=== PATIENT | female | born 1990 | race African-American/Black ===

== ENCOUNTER 2018-01-15 14:55 | Observation (INO) | payer OTHER ==
[~2018-01-15] VITALS: Ht 142.2 cm; Wt 36.8 kg
[2018-01-15 15:17] VITALS: BP 135/75
--- NOTE | 2018-01-15 15:20 | NUR ---
PT WHEEL CHAIR ASSISTED TO BED 12
--- NOTE | 2018-01-15 15:20 | NUR ---
ASSUMED TEMPORARY CARE OF PT AT THIS TIME FOR PRIMARY RN WHO IS ON 30 MIN. BREAK. C/O N/V, CONSTIPATION, SORE THROAT, CHEST PAIN X 2 WKS; PT STATES SHE IS APPROXIMATELY 8 WEEKS OB+. AAOX4 WITH EVEN AND STEADY GAIT; PATIENT STATES PAIN OF /10 AT THIS TIME; VSS; PATIENT POSITIONED FOR COMFORT; HOB ELEVATED; BEDRAILS UP X2; BED DOWN. ER MD MADE AWARE OF PT STATUS. WILL CONTINUE TO MONITOR.
[2018-01-15] MEDS ORDERED: NACL 0.9% 1,000 ML IV ONE ×2 (16:35→18:25)
[2018-01-15] MEDS ORDERED: ONDANSETRON 4 MG ODT PO ONE (16:35)
[2018-01-15 17:00] LABS: BASOPHILS % (AUTO) 0.6 % (0.0-2.0); EOSINOPHILS % (AUTO) 0.6 % (0.0-4.0); HEMATOCRIT 37.4 % (36-48); HEMOGLOBIN 12.6 g/dL (12.0-16.0); LYMPHOCYTES % (AUTO) 14.2 % (20.5-51.1); MEAN CORPUSCULAR HEMOGLOBIN 27 pg (27-31); MEAN CORPUSCULAR HGB CONC 34 g/dL (33-37); MEAN CORPUSCULAR VOLUME 79.1 fL (80-94); MONOCYTES # (AUTO) 0.6 K/uL (0.8-1.0); MONOCYTES % (AUTO) 8.9 % (1.7-9.3); NEUTROPHILS # (AUTO) 5.1 K/uL (1.8-7.7); NEUTROPHILS % (AUTO) 75.7 % (42.2-75.2); PLATELET COUNT (AUTO) 340 K/uL (140-450); RED BLOOD CELL COUNT(AUTO) 4.73 MIL/uL (4.20-5.40); RED CELL DISTRIBUTION WIDTH 14.9 % (11.6-13.7); WHITE BLOOD COUNT (AUTO) 6.7 K/uL (4.8-10.8)
[2018-01-15 17:14] LABS: ANION GAP 14.8 (8-16); CARBON DIOXIDE 25.8 mmol/L (21-32); CREATININE 0.6 mg/dL (0.6-1.3); POTASSIUM 3.6 mmol/L (3.5-5.1)
--- NOTE | 2018-01-15 17:16 | NUR ---
BEDSIDE ULTRASOUND COMPLETED
[2018-01-15 17:20] LABS: ALBUMIN 3.5 g/dL (3.4-5.0); TOTAL BILIRUBIN 0.7 mg/dL (0.0-1.0)
--- NOTE | 2018-01-15 18:19 | NUR ---
URINE COLLECTED--ESTELLE
--- NOTE | 2018-01-15 19:05 | NUR ---
CONTINUES TO WAIT FOR DISPO---MOTHER AT BEDSIDE NO REPEATED EMESIS---WILL CONTINUE TO OBSERVE
[2018-01-15 19:06] LABS: APPEARANCE,URINE HAZY (CLEAR); BILIRUBIN,URINE 1+ (NEGATIVE); BLOOD, URINE 2+ (NEGATIVE); COLOR,URINE YELLOW (YELLOW); LEUKOCYTE ESTERASE ,URINE NEGATIVE (NEGATIVE); NITRITE, URINE NEGATIVE (NEGATIVE); UGLUCOSE NEGATIVE (NEGATIVE)
--- NOTE | 2018-01-15 19:22 | NUR ---
REPORT RECIEVED FROM JASMEET AHUMADA.
[2018-01-15 19:37] LABS: RBC,URINE 11-20 (MOD) /HPF (0-5); WBC,URINE 6-15 (FEW) /HPF (0-5)
[2018-01-15] MEDS ORDERED: cefTRIAXone 1,000 MG VIAL ONE ×2 (19:57→21:47)
[2018-01-15] MEDS ORDERED: ACETAMINOPHEN 325 MG TAB PO PRN (20:35)
[2018-01-15] MEDS ORDERED: DOCUSATE SODIUM 100 MG GELCAP PO PRN (20:35)
[2018-01-15] MEDS ORDERED: HYDROcodone/APAP 7.5/325 MG 1 TAB PO PRN (20:35)
[2018-01-15] MEDS ORDERED: METOCLOPRAMIDE 10 MG/2 ML INJ VIAL IVP PRN (20:55)
--- NOTE | 2018-01-15 20:57 | NUR ---
Pt report given to EZEQUIEL RN, ROOM 104B WITH VSS. Transfer of care at this time.
[2018-01-15] MEDS ORDERED: PREN-380 PO (20:59)
[2018-01-15] MEDS ORDERED: ONDA4TAB PO (20:59)
[2018-01-15 21:00] VITALS: BP 133/92
--- NOTE | 2018-01-15 21:00 | NUR ---
RECEIVED PT FROM ER NURSE ERNST-RN. PT ARRIVED VIA GURNEY AND AMBULATED TO HER BED. ON TELEMETRY. AOX4, ON ROM AIR, WITH IV RIGHT AC #20G. DISCUSSED PLAN OF CARE AND PT VERBALIZED UNDERSTANDING. NO S/S OF RESPIRATORY DISTRESS OR DISCOMFORT. ORIENTED PT TO ROOM. WHITE BOARD UPDATED. BED IN LOWEST POSITION, BED BREAKS ON, SIDE RAILS UP. BED SIDE TABLE AND CALL LIGHT WITHIN REACH. WILL CONTINUE TO MONITOR.
[2018-01-15 21:02] LABS: PROTHROMBIN TIME 11.1 secs (10.8-13.4)
[2018-01-15 21:04] LABS: BARBITURATE, URINE NEG. ng/ml (NEG <=200); BENZODIAZEPINE, URINE NEG. ng/mL (NEG <=200); CANNABINOID, URINE NEG. ng/mL (NEG <=50); COCAINE, URINE NEG. ng/mL (NEG <=300); OPIATE, URINE NEG. ng/mL (NEG <=2000); PHENCYCLIDINE SCREEN,URINE NEG. ng/mL (NEG <=25)
[2018-01-15 21:11] LABS: AMYLASE 170 U/L (25-115); CHOL/HDL RATIO 2.3 (1-4.5); FREE T4 (FREE THYROXINE) 2.21 ng/dL (0.76-1.46); HDL CHOLESTEROL 69 mg/dL (40-60); LDL (CALC) 85 mg/dL (60-100); LIPASE 152 U/L (73-393); PHOSPHORUS 3.2 mg/dL (2.5-4.9); THYROID STIMULATING HORMONE < 0.01 uIU/mL (0.34-3.74); TRIGLYCERIDES 40 mg/dL (30-150)
[2018-01-15] MEDS: NACL 0.9% 1,000 ML IV SCH (21:52)
--- NOTE | 2018-01-15 22:20 | NUR ---
MEDICATED PT WITH REGLAN FOR N/V. PT TOLERATED WELL. WILL CONTINUES TO MONITOR.
--- NOTE | 2018-01-15 22:35 | NUR ---
PT BEGAN TO SAY SHE WAS GOING TO FAINT AND DROPPED HER CUP OF ICE CHIPS ON THE FLOOR. PT BEGAN TO SAY SHE WAS FEELING HOT AND COLD AND WANTED ME TO REMOVE HER IV. I DISCONNECTED HER IV AND TOOK HER VITAL SIGNS. BP 130/90, HR 111, TEMP 98.6F. CALLED CHARGE NURSE CANDY TO SPEAK WITH PT SINCE SHE BEGAN TO CRY AND NOT ANSWER MY QUESTIONS. WHILE CANDY WAS IN THE ROOM PT REMOVED HEART MONITOR AND REFUSED TO USE IT. DR. JIMÉNEZ AWARE OF THE SITUATION. DR. JIMÉNEZ TO COME IN AND SPEAK TO PT. PT ALSO SAYING SHE NO LONGER WANTS TO BE AND CALLING HER MOM AND SISTER ON THE PHONE.
--- NOTE | 2018-01-15 22:45 | NUR ---
[place]OR[place] SMITH CAME INTO THE ROOM WHILE PT WAS CRYING ON THE PHONE SAYING "NO ONE WANTS TO HELP ME." HOWEVER WHEN FLORIDA SMITH TRIED TO HELP HER SHE STATED, "GET OUT OF MY ROOM!"
--- NOTE | 2018-01-15 23:14 | NUR ---
TYLENOL WAS GIVEN AFTER PT C/O PAIN 05/[address] JIMÉNEZ AWARE AND ADVISED ON GIVING TYLENOL. D/C NORCO. PT WAS ENCOURAGED TO TAKE MEDICATION BY "BATSHEVA" VIA CELLPHONE. PT TOOK MEDICATION AND THEN VOMITED LIQUID. TYLENOL PILLS WERE NOT VOMITED. PT IN POSITION SAYING ONLY THAT POSITION FEELS BETTER. WILL CONTINUE TO MONITOR.
[2018-01-16] VITALS: BP 127/94
--- NOTE | 2018-01-16 | NUR ---
VITAL SIGNS TAKEN AND TOLERATED WELL. PT HAD BEEN ASLEEP IN POSITION. NO S/S OF RESPIRATORY DISTRESS OR DISCOMFORT NOTED AT THIS TIME. ASSISTED PT WITH WARM BLANKET FOR COMFORT. WILL CONTINUE TO MONITOR.
--- NOTE | 2018-01-16 02:00 | NUR ---
PT CONTINUES TO SLEEP. NO S/S OF RESPIRATORY DISTRESS OR DISCOMFORT NOTED AT THIS TIME. WILL CONTINUE TO MONITOR.
--- NOTE | 2018-01-16 04:00 | NUR ---
PT CONTINUES TO SLEEP IN BED. NO S/S OF RESPIRATORY DISTRESS OR DISCOMFORT. WILL CONTINUE TO MONITOR.
--- NOTE | 2018-01-16 04:30 | NUR ---
PT C/O NOT FEELING WELL AND AGAIN EXPERIENCING N/V. SPOKE WITH DR. JIMÉNEZ AND HE WILL CHANGE THE FREQUENCY OF REGLAN TO Q6H SO THAT IT MAY BE AVAILABLE FOR ME TO GIVE NOW.
--- NOTE | 2018-01-16 04:55 | NUR ---
PT AGREED TO HAVE IVF BACK ON. IVF INFUSING WELL.
[2018-01-16] MEDS: METOCLOPRAMIDE 10 MG/2 ML INJ VIAL IVP PRN ×2 (04:58→10:54)
--- NOTE | 2018-01-16 05:00 | NUR ---
REGLAN GIVEN FOR N/V. PT TOLERATED WELL. NO S/S OF RESPIRATORY DISTRESS OR DISCOMFORT. WILL CONTINUE TO MONITOR.
--- NOTE | 2018-01-16 06:00 | NUR ---
PT CONTINUES TO SLEEP. NO S/S OF RESPIRATORY DISTRESS OR DISCOMFORT. WILL CONTINUE TO MONITOR.
--- NOTE | 2018-01-16 06:27 | NUR ---
PT ASKED WELDER SETTER ELECTRON BEAM MACHINE TO RETURN AT A LATER TIME FOR BLOOD DRAW.
[2018-01-16] MEDS: NACL 0.9% 1,000 ML IV SCH (06:29)
--- NOTE | 2018-01-16 07:34 | NUR ---
ENDORSED PT CARE TO DAY SHIFT NURSE DARRYL-RN FOR CONTINUITY OF CARE.
--- NOTE | 2018-01-16 07:36 | NUR ---
RECEIVED BEDSIDE REPORT FROM PATIENT ACCESS REGISTRAR NURSE. PATIENT IS SLEEPING. NO SIGNS OF DISTRESS ON ROOM AIR. PATIENT SLEEPING ON TUMMY. IV ON R AC 20G INFUSING NS AT 100. IV IS CLEAN, DRY AND INTACT. PATIENT IS 8 WEEKS 5 DAYS . BED IN LOW POSITION. CALL LIGHT WITHIN REACH. WILL CONTINUE TO MONITOR PATIENT. PATIENT IS ON OBSERVATION.
[2018-01-16 08:00] VITALS: BP 134/88
--- NOTE | 2018-01-16 09:00 | NUR ---
PATIENT SEEN BY DR AU. HE STATES HE IS OK WITH CLEAR LIQ DIET AND TO SEE IF SHE CAN TOLERATE IT, IF SO ADVANCE THE DIET. PATIENT VERBALIZED UNDERSTANDING.
--- NOTE | 2018-01-16 10:13 | NUR ---
PATIENT HAS BEEN SCREENED AND CATEGORIZED HIGH NUTRITION RISK. PATIENT WILL BE SEEN WITHIN 1-2 DAYS OF ADMISSION. 01/16/18 01/17/[address]
--- NOTE | 2018-01-16 10:30 | NUR ---
FNS BROUGHT APPLE FOR PATIENT. SHE WAS CRAVING FRUIT. WILL ASSESS HOW PATIENT TOLERATES IT.
[2018-01-16] MEDS ORDERED: METO-485 PO (10:57)
--- NOTE | 2018-01-16 10:58 | NUR ---
ADMINISTERED REGLAN. PATIENT TRIED TO EAT AN APPLE, SHE TOOK ONE BITE AND VOMIT IT OUT. IV IS CLEAN, DRY AND INTACT. WILL CONTINUE TO MONITOR THE PATIENT.
--- NOTE | 2018-01-16 11:15 | NUR ---
PATIENT IS CRYING D/T GENERALIZED PAIN. PATIENT REFUSED ANY MEDS FOR PAIN. SHE STATES THAT SHE JUST SLEEPS IT OFF. WILL WORK ON DC ORDER
--- NOTE | 2018-01-16 11:53 | NUR ---
STOPPED IV INFUSION. PATIENT REMOVED IV SHE SAID IT WAS PAINFUL. PATIENT IS GETTING DISCHARGED SO NO NEED TO PLACE A NEW ONE. WILL CONTINUE TO WORK ON DC PAPERWORK.
--- NOTE | 2018-01-16 13:15 | NUR ---
EDUCATED PATIENT ON DISEASE PROCESS, WHEN TO GO TO THE NEAREST ER, ABN S/SX, GAVE PRESCRIPTION, EDUCATED ON MEDS, EDUCATED ON F/U WITH DR AU AND PCP. PATIENT VERBALIZED UNDERSTANDING AND SIGNED DC PAPERWORK. REMOVED ID BANDS. PATIENT LEFT ON WHEELCHAIR WITH MOM PATIENT LEFT IN STABLE CONDITION..
[2018-01-18 15:17] LABS: T4 (THYROXINE) 21.9 ug/dL (4.5 - 12.0)
== END 2018-01-16 13:15 | disposition home or self-care (01) ==
LOC: MED 14:55 → MTU 20:33
PROVIDERS: ADMIT General Practice; ATTEND General Practice
DX: O23.41 Unspecified infection of urinary tract in pregnancy, first trimester (principal); R31.9 Hematuria, unspecified; Z3A.08 8 weeks gestation of pregnancy
CPT/HCPCS: 36415; 76770; 76801; 80053; 80061; 80305; 81001; 82150; 83036; 83690; 83735; 83880; 84100; 84436; 84439; 84443; 84479; 84484; 84702; 85025; 85610; 85730; 86900; 86901; 87081; 87086; 93005; 96361; 96365; 96375; 96376; 99285; G0378; J0696; J2765; J7030; Q0092; S0119; J7060

== ENCOUNTER 2018-04-09 18:55 | Observation (INO) | payer OTHER ==
[~2018-04-09] VITALS: Ht 142.2 cm; Wt 48.1 kg
[~2018-04-09 18:55] MED LIST: METO-485 PO; ONDA4TAB PO; PREN-380 PO
== END 2018-04-09 19:50 | disposition left against medical advice (07) ==
LOC: MLD 18:55
PROVIDERS: ADMIT Obstetrics & Gynecology; ATTEND Obstetrics & Gynecology
DX: O26.892 Other specified pregnancy related conditions, second trimester (principal); R10.9 Unspecified abdominal pain; Z3A.22 22 weeks gestation of pregnancy
CPT/HCPCS: 81000; G0378